=== PATIENT | female | born 1995 | race Caucasian/White ===

== ENCOUNTER → 2017-04-07 | Outpatient (CLI) | payer BC, OTHER ==
[2015-04-02 11:15] VITALS: BP 159/106
[~2017-04-07] MED LIST: CEPH500T PO; NIFE30TA7 PO
--- NOTE | 2017-04-07 16:04 | RAD ---
EXAM: Obstetric ultrasound. HISTORY: Renal anatomy screening. COMPARISON: None. FINDINGS: Sonographic evaluation of the fetus and maternal pelvis was performed transabdominally. There is a single fetus in variable presentation. Estimated gestational age based on measurements is 19 weeks 4 days. heart rate is 127 bpm. The placenta is anterior. The cervix is closed and measures 4.9 cm. Amniotic fluid volume is visually normal. The posterior fossa appears normal. There is no hydrocephalus. The choroid plexus appears normal. The stomach and bladder are visualized. The cord is three-vessel. The heart is four-chamber on real-time scanning, but not clearly demonstrated on these images. The kidneys demonstrate no hydronephrosis. The cord insertion appears normal. The spine demonstrates no clear defects. Nose/lip morphology appear normal. The diaphragm is complete. IMPRESSION: 1. Single fetus in variable presentation. Estimated gestational age based on measurements 19 weeks 4 days. heart rate 127 bpm. 2. The heart is four-chamber on real-time scanning but not clearly demonstrated on these images. Follow could be performed if there is persistent concern.
== END | disposition home or self-care (01) ==
LOC: US 13:59
PROVIDERS: ATTEND Obstetrics & Gynecology
DX: O09.92 Supervision of high risk pregnancy, unspecified, second trimester (principal); O26.842 Uterine size-date discrepancy, second trimester; Z3A.19 19 weeks gestation of pregnancy
CPT/HCPCS: 76805

== ENCOUNTER → 2018-06-09 | Outpatient (CLI) | payer BC, OTHER ==
[2015-04-02 11:15] VITALS: BP 159/106
--- NOTE | 2018-06-09 16:31 | RAD ---
Examination: Obstetric ultrasound less than 14 weeks HISTORY: History of uterine size discrepancy COMPARISON: 04/07/2017 FINDINGS: Single living intrauterine with heart rate of 155 bpm. movement is seen Cardiac activity seen 4 chamber heart, cord insertion, fluid in the bladder, stomach, kidneys, spine, brain aren't visualized. position is breech. Cervical length is 3.8 cm. Amniotic fluid is normal. Placenta in the posterior wall. Placental grade is grade 1. Biparietal diameter 5.87 cm corresponding 24 weeks and 0 days. Head circumference 22.6 cm corresponding 24 weeks and 5 days. Abdominal circumference 19.2 cm corresponding 24 weeks and 0 days. Femur length 4.5 cm corresponding to 24 weeks and 6 days. Head circumference to abdominal circumference ratio 1.18 Estimated weight 689 g. Cephalic index 75.2 Head circumference to abdominal circumference ratio 1.18 Femur length to biparietal diameter ratio 76.8 Femur length to head circumference 19.9. Femur length abdominal circumference 23.5. LMP is 01/01/2018. Clinical age 22 weeks and 5 days with estimated delivery by LMP 10/08/2018. Ultrasound age is 24 weeks and 3 days with expected date of delivery by ultrasound 09/26/2018. IMPRESSION: Single living intrauterine with heart rate of 155 bpm. Ultrasound age is 24 weeks and 3 days. Electronically signed by: Veto Burk MD (06/09/2018 4:27 PM) [id number]
== END | disposition home or self-care (01) ==
LOC: US 07:20
PROVIDERS: ATTEND Obstetrics & Gynecology
DX: O26.842 Uterine size-date discrepancy, second trimester (principal); O10.912 Unspecified pre-existing hypertension complicating pregnancy, second trimester; Z3A.24 24 weeks gestation of pregnancy
CPT/HCPCS: 76805

== ENCOUNTER 2019-05-06 14:42 | Emergency (ER) | payer BC ==
[~2019-05-06] VITALS: Ht 157.5 cm; Wt 104.3 kg
[2019-05-06 15:59] VITALS: BP 149/80
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
== END 2019-05-06 16:27 | disposition home or self-care (01) ==
LOC: ER 14:42
DX: K62.5 Hemorrhage of anus and rectum (principal); I10 Essential (primary) hypertension; Z98.890 Other specified postprocedural states; Z91.018 Allergy to other foods
CPT/HCPCS: 81025; 99283